=== PATIENT | male | born 1970 | race Caucasian/White ===

== ENCOUNTER 2016-09-06 00:04 | Emergency (ER) | payer SELFPAY ==
[~2016-09-06 00:04] MED LIST: GABA400 PO; LEVE500 PO; PANT40IN3 PO; PERC10TA27 PO; ZANT300T PO; [UNRECOGNIZED DRUG - CODE] PO
[2016-09-06 00:07] VITALS: BP 139/78; PULSE 98; RESP 18; TEMP 98.1; O2SAT 99
[2016-09-06] MEDS ORDERED: GABA400C5 PO (00:56)
[2016-09-06] MEDS ORDERED: INVE1.5T PO (00:56)
[2016-09-06] MEDS ORDERED: TRAZ50TA12 PO (00:56)
[2016-09-06] MEDS ORDERED: TRIL300T PO (00:56)
[2016-09-06] MEDS ORDERED: TEGR200T PO (00:56)
[2016-09-06] MEDS ORDERED: LORA-392 PO (00:56)
[2016-09-06] MEDS ORDERED: LEVE500 PO (00:56)
[2016-09-06 01:35] LABS: AUTOMATED NEUTROPHIL # 5.3 TH/MM3 (1.8-7.7); BASOPHIL # 0.1 TH/MM3 (0-0.2); BASOPHIL % 0.7 % (0.0-2.0); EOSINOPHIL # 0.3 TH/MM3 (0-0.4); EOSINOPHIL % 3.1 % (0.0-4.0); HEMATOCRIT 44.4 % (39.0-51.0); HEMO FLAGS DIFF FINAL; LYMPH % 26.1 % (9.0-44.0); LYMPHOCYTE # 2.2 TH/MM3 (1.0-4.8); MEAN CELL VOLUME 94.1 FL (80.0-100.0); MEAN CORPUSCULAR HEMOGLOBIN 32.9 PG (27.0-34.0); MEAN CORPUSCULAR HGB CONC 34.9 % (32.0-36.0); MONO % 8.3 % (0.0-8.0); NEUT % 61.8 % (16.0-70.0); PLATELET COUNT 175 TH/MM3 (150-450); RED BLOOD COUNT 4.71 MIL/MM3 (4.50-5.90); RED CELL DISTRIBUTION WIDTH 14.1 % (11.6-17.2); WHITE BLOOD COUNT 8.6 TH/MM3 (4.0-11.0)
[2016-09-06 02:02] LABS: ALT (GPT) 89 U/L (12-78); ANION GAP 11 MEQ/L (5-15); AST (GOT) 70 U/L (15-37); BICARBONATE 24.3 MEQ/L (21.0-32.0); BLOOD UREA NITROGEN 9 MG/DL (7-18); CHLORIDE 105 MEQ/L (98-107); GLOMERULAR FILTRATION RATE 85 ML/MIN (>89); POTASSIUM 3.9 MEQ/L (3.5-5.1); SODIUM (NA) 140 MEQ/L (136-145)
[2016-09-06 02:04] LABS: ALKALINE PHOSPHATASE 70 U/L (45-117); TOTAL BILIRUBIN ADULT 0.3 MG/DL (0.2-1.0)
[2016-09-06 02:58] LABS: AMPHETAMINE, URINE NEG (NEG); BARBITURATES, URINE NEG (NEG); COCAINE, URINE POS (NEG)
[2016-09-06 03:00] VITALS: BP 124/71; PULSE 78; RESP 18; O2SAT 98
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
[2016-09-06 06:25] VITALS: BP 130/70; PULSE 88; RESP 18; O2SAT 98
--- NOTE | 2016-09-06 10:31 | PD.CONS ---
Provisional Diagnosis Admission Date [place] I. Drug-induced mood disorder F 19.94, antisocial personality disorder F 60.2 History of Present Illness Service Psychiatry Consult Requested By EDMD Reason for Consult Assessment Primary Care Physician No Primary Care Physician HPI Patient is a 46-year-old white male comes here voluntarily complaining of depression recent of family members. Urine toxicology is positive for cocaine and marijuana blood alcohol level of 31. Patient states she is from [place] does have friends and contacts up there states he does have an issue with substances and mental health long various medical and physical issues. He states he does see a psychiatrist in [place] with his [facility] orders in a dual diagnosis program. Review of our EMR shows multiple urine toxicology is positive for cocaine and marijuana going back a number of years is also small amount of alcohol involved. Patient has had a suicide attempt the pessary swallowed razor blades was seen by Dr. Fuentes in consultation and allowed to be released. Patient seen in his room on [address] with nurse Britni. Patient is calm cooperative at times appears somewhat manipulative seeing he has friends from [place] coming down to meet him but the good meet him and beside. He denies suicidality homicidality voices or visions. Somewhat minimizes his addictions. Though states he does see a psychiatrist at this time is described her psychotropic medications. He is vague about his compliance with them. They states she sees a psychiatrist monthly and is going to counseling of that area also. At the present time patient does not meet criteria for inpatient psychiatric hospitalization. It is okay by psych for discharge when he is medically clear and stable. No Rx by me. May continue his own schedule medications of follow- up with a psychiatrist in [place] Review of Systems Other No significant issues at present and review of systems Past Family Social History Coded Allergies: Bactrim (Verified Allergy, Severe, 09/06/16) Haldol (Verified Allergy, Severe, 09/06/16) Mellaril (Verified Allergy, Severe, SOB, 09/06/16) Thorazine (Verified Allergy, Severe, "CARDIAC PROBLEMS"-LOC- CARDIAC ARREST, 09/06/16) Trazodone (Verified Allergy, Severe, 09/06/16) Vistaril (Verified Allergy, Severe, 09/06/16) Sulfa (Verified Allergy, Mild, EYE SWELLING, ITCHING, 09/06/16) ALYSHA BACTRIM Uncoded Allergies: ZINACEF (Allergy, Severe, 09/28/08) Past Medical History Patient history multiple trauma seizure disorder Reported Medications Trazodone 50 Mg Tab50 Mg PO HS #30 TAB Ref 0 09/06/16 Oxcarbazepine (Trileptal)300 Mg [id number] Mg PO BID #60 TAB Ref 0 09/06/16 Paliperidone ER (Invega)1.5 Mg Tab1.5 Mg PO DAILY #30 TAB Ref 0 09/06/16 Lorazepam (Ativan)0.5 Mg Tab0.5 Mg PO HS PRN (ANXIETY AND/OR AGITATION) Ref 0 09/06/16 Carbamazepine (Tegretol)200 Mg [id number] Mg PO BID #60 TAB Ref 0 09/06/16 Levetiracetam (Keppra)500 Mg [id number] Mg PO BID #60 TAB Ref 0 09/06/16 Gabapentin 400 Mg [id number] Cap PO TID #30 CAP Ref 0 09/06/16 Family History Denies mental illness and family there have been family deaths recently Social History Patient lives in [facility] his friends will help him with his program Patient's Strengths (min. 2) Issue verbal atelectasis health care Physical Exam Patient seen screened in ED medically cleared exam reviewed and agreed with Vital Signs Vital Signs Date Time Temp Pulse Resp B/P Pulse Ox O2 Delivery O2 Flow Rate FiO2 09/06/16 06:25 88 18 130/70 98 Room Air 09/06/16 00:07 98.1 Mental Status Examination Alert oriented white male appears stated age somewhat disheveled in appearance calm cooperative somewhat demanding and irritable Appearance Somewhat disheveled Speech: Unremarkable (slight increased rate) Orientation: x3 Memory: Unremarkable Thought Process: Logical Thought Content: Unremarkable Hallucination Type: None Attention and Concentration: Good Suicidal Ideation: No Previous Suicide Attempts: Yes Homicidal Ideation: No Previous Homicide Attempts: No Insight: Poor Judgement: Poor Affect: Euthymic (to somewhat restricted), Irritable (mildly) Mood: Euthymic (to somewhat irritable) Motor Activity: Normal gait Assessment & Plan Problem List: (1) Antisocial personality disorder ICD Code: F60.2 (2) Drug-induced mood disorder ICD Code: F19.94 Assessment & Plan Estimated LOS: days distant patient does not meet criteria for inpatient psychiatric stay. Is okay by psychiatry for discharge when medically clear and stable, no Rx by me, may continue his own schedule medications, and follow-up with his psychiatrist in [place] Discharge Planning See above Request HC Surrog/Guard Advoc?: No Darrion Calixto MD Sep 06, 2016 10:31
== END 2016-09-06 10:50 | disposition home or self-care (01) ==
LOC: NEPA 00:04 → NEPJ 10:50
DX: F19.94 Other psychoactive substance use, unspecified with psychoactive substance-induced mood disorder (principal); F60.2 Antisocial personality disorder; J45.909 Unspecified asthma, uncomplicated; Z72.0 Tobacco use
CPT/HCPCS: 80053; 80307; 80320; 85025; 99283

== ENCOUNTER 2016-09-14 18:49 | Emergency (ER) | payer OTHER ==
[~2016-09-14] VITALS: Ht 180.3 cm; Wt 92.0 kg
[~2016-09-14 18:49] MED LIST changes: -GABA400 PO; +GABA400C5 PO; +INVE1.5T PO; +LORA-392 PO; -PANT40IN3 PO; -PERC10TA27 PO; +TEGR200T PO; +TRAZ50TA12 PO; +TRIL300T PO; -ZANT300T PO; -[UNRECOGNIZED DRUG - CODE] PO
[2016-09-14 18:58] VITALS: BP 168/92; PULSE 100; RESP 20; TEMP 97.8; O2SAT 98
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
[2016-09-14] MEDS ORDERED: KETOROLAC TROMETHAMINE 60 MG/2 ML (IM) VIAL IM ONE (20:30)
== END 2016-09-14 20:53 | disposition left against medical advice (07) ==
LOC: NEPE 18:49
DX: M25.511 Pain in right shoulder (principal); Z53.29 Procedure and treatment not carried out because of patient's decision for other reasons; Z72.0 Tobacco use; Z87.39 Personal history of other diseases of the musculoskeletal system and connective tissue; Z87.09 Personal history of other diseases of the respiratory system; Z86.59 Personal history of other mental and behavioral disorders; Z87.19 Personal history of other diseases of the digestive system; Z87.448 Personal history of other diseases of urinary system
CPT/HCPCS: 99283